=== PATIENT | male | born 1995 | race American Indian/Alaskan Native ===

== ENCOUNTER 2021-08-17 19:53 | Emergency (ER) | payer SELFPAY ==
--- NOTE | 2021-08-18 08:12 | Emergency Department Report ---
ED Lower Extremity HPI - General Chief Complaint: Extremity Problem,Nontraumatic Stated Complaint: PAIN IN FOOT Time Seen by Provider: 08/18/21 07:51 Source: patient Mode of arrival: Ambulatory Limitations: No Limitations - History of Present Illness Initial Comments: Patient is a 25-year-old male that comes to the ER with bilateral foot pain. He did not give all information on initial exam. However, it came out through the course of his stay that he has bilateral gout. He is on colchicine, allopurinol, prednisone and indomethacin. None of this was divulged at the beginning of his exam. He denies any trauma. He is neurovascularly intact. He is accompanied to the ER by his . He denies any leg pain. Denies any chest pain, shortness of breath, fever or chills. Complaint: other -: Gradual, days(s) Place: home Severity scale (0 -10): 4 Improves With: nothing Worsens With: weight bearing - Related Data Allergies Allergy/AdvReac Type Severity Reaction Status Date / Time No Known Allergies Allergy Verified 08/17/21 21:33 ED Review of Systems ROS: Stated complaint: PAIN IN FOOT Other details as noted in HPI Comment: All other systems reviewed and negative ED Past Medical Hx - Past Medical History Previous Medical History?: Yes Additional medical history: Being treated for gout, denies having had a uric acid level drawn in the past--obesity - Surgical History Past Surgical History?: No - Family History Family history: no significant - Social History Smoking Status: Never Smoker Substance Use Type: None ED Physical Exam - General Limitations: No Limitations General appearance: alert, in no apparent distress - Head Head exam: Present: atraumatic, normocephalic - Eye Eye exam: Present: normal appearance - ENT ENT exam: Present: mucous membranes moist - Neck Neck exam: Present: normal inspection - Respiratory Respiratory exam: Present: normal lung sounds bilaterally. Absent: respiratory distress - Cardiovascular Cardiovascular Exam: Present: regular rate, normal rhythm. Absent: systolic murmur, diastolic murmur, rubs, gallop - GI/Abdominal GI/Abdominal exam: Present: soft, normal bowel sounds - Rectal Rectal exam: Present: deferred - Extremities Exam Extremities exam: Present: normal inspection - Back Exam Back exam: Present: normal inspection - Neurological Exam Neurological exam: Present: alert, oriented X3 - Psychiatric Psychiatric exam: Present: normal affect, normal mood - Skin Skin exam: Present: warm, dry, intact, normal color. Absent: rash ED Course Vital Signs 08/17/21 08/18/21 21:28 09:54 Temperature 97.9 F Pulse Rate 87 88 Respiratory 20 16 Rate Blood Pressure 127/72 Blood Pressure 122/76 [Left] O2 Sat by Pulse 96 99 Oximetry ED Lower Extremity MDM - Lab Data Result diagrams: 08/18/21 08:22 08/18/21 08:22 - Medical Decision Making Vital Signs 08/17/21 21:28 Temperature 97.9 F Pulse Rate 87 Respiratory 20 Rate Blood Pressure 127/72 O2 Sat by Pulse 96 Oximetry Lab Results 08/18/21 08/18/21 08/18/21 Range/Units 08:22 08:22 Unknown WBC 4.9 (4.5-11.0) K/mm3 RBC 5.56 H (3.65-5.03) M/mm3 Hgb 14.9 (11.8-15.2) gm/dl Hct 46.1 H (35.5-45.6) % MCV 83 L (84-94) fl MCH 27 L (28-32) pg MCHC 32 (32-34) % RDW 14.0 (13.2-15.2) % Plt Count 187 (140-440) K/mm3 Sodium 140 (137-145) mmol/L Potassium 4.4 (3.6-5.0) mmol/L Chloride 101.1 (98-107) mmol/L Carbon Dioxide 27 (22-30) mmol/L Anion Gap 16 mmol/L BUN 18 (9-20) mg/dL Creatinine 0.8 (0.8-1.3) mg/dL Estimated GFR > 60 ml/min BUN/Creatinine Ratio 23 % Glucose 122 H (75-100) mg/dL Uric Acid 7.0 (3.5-7.6) mg/dL Calcium 10.0 (8.4-10.2) mg/dL Total Bilirubin 0.20 (0.1-1.2) mg/dL AST 16 (5-40) units/L ALT 18 (7-56) units/L Alkaline Phosphatase 57 (35-129) units/L Total Creatine Kinase 450 H (55-170) units/L Total Protein 7.6 (6.3-8.2) g/dL Albumin 5.0 (3.9-5) g/dL Albumin/Globulin Ratio 1.9 % Urine Color Yellow (Yellow) Urine Turbidity Clear (Clear) Urine pH 5.0 (5.0-7.0) Ur Specific [place] 1.025 (1.003-1.030) Urine Protein <15 mg/dl (Negative) mg/dL Urine Glucose (UA) Neg (Negative) mg/dL Urine Ketones 20 (Negative) mg/dL Urine Blood Neg (Negative) Urine Nitrite Neg (Negative) Urine Bilirubin Neg (Negative) Urine Urobilinogen < 2.0 (<2.0) mg/dL Ur Leukocyte Esterase Neg (Negative) Urine WBC (Auto) 1.0 (0.0-6.0) /HPF Urine RBC (Auto) < 1.0 (0.0-6.0) /HPF Urine Mucus Few /HPF Patient denies trauma. His labs were noted. Uric acid normal CK noted. Patient does work outside he does a lot of heavy lifting and he admits that he does not drink enough water. We had a long discussion about his use of colchicine, prednisone, allopurinol and indomethacin in the setting of a CK elevation. I encouraged him to drink a lot of water so that his kidney function remains normal. I have also discussed with him his elevated blood glucose. He denies having a primary care physician but we have discussed the importance of him having one doctor that he follows up with that can maintain his medical problems. We have also discussed being forthcoming with medical providers about his past medical history. Patient is very adamant about a work note and not going to work because of his foot pain. I have given him a work note for today but told him we cannot take him out of work that he will need to see primary care for this. The nurses call me back to the room for additional education I went over the above lab findings again with the patient and the family. They verbalized understanding of plan of care including diet, activity, medications, hydration and follow-up. On discharge patient is in no acute distress, he has normal vital signs. He has no fever or chills. He is taking p.o. He is ambulatory with no difficulty - Differential Diagnosis Rule out gout Critical care attestation.: If time is entered above; I have spent that time in minutes in the direct care of this critically ill patient, excluding procedure time. ED Disposition Clinical Impression: Foot cramps, Elevated CK Obesity Qualifiers: Obesity type: due to excess calories Disposition: HOME / SELF CARE / HOMELESS Is pt being admited?: No Does the pt Need Aspirin: No Condition: Stable Instructions: Muscle Cramps and Spasms, [id number] Additional Instructions: STAY WELL HYDRATED WITH WATER FOLLOW UP WITH PCP TO REPEAT CK MOTRIN OR TYLENOL FOR PAIN Referrals: PRIYANKA SAENZ MD [Staff Physician] - 3-5 Days Forms: Work/School Release Form(ED) Time of Disposition: 09:26
[2021-08-18] MEDS ORDERED: dexAMETHasone 4 MG/ML VIAL IM ONE (08:13)
[2021-08-18 08:57] LABS: Hematocrit 46.1 % (35.5-45.6); Hemoglobin 14.9 gm/dl (11.8-15.2); Mean Corpuscular HGB Conc 32 % (32-34); Mean Corpuscular Volume 83 fl (84-94); Platelet Count 187 K/mm3 (140-440); Red Blood Count 5.56 M/mm3 (3.65-5.03)
[2021-08-18 09:02] LABS: Bilirubin,Urine NEG (Negative); Blood,Urine NEG (Negative); Color,Urine Yellow (Yellow); Mucus,Urine FEW /HPF; Protein,Urine <15 mg/dL mg/dL (Negative); RBC,Urine < 1.0 /HPF (0.0-6.0); Urobilinogen,Urine < 2.0 mg/dL (<2.0)
[2021-08-18 09:15] LABS: Alanine Aminotransferase 18 units/L (7-56); BUN/Creatinine Ratio 23; Blood Urea Nitrogen 18 mg/dL (9-20); Hemolysis Index 12
[2021-08-18 09:55] VITALS: BP 122/76
== END 2021-08-18 09:55 | disposition home or self-care (01) ==
LOC: ED 19:53
DX: R25.2 Cramp and spasm (principal); R74.8 Abnormal levels of other serum enzymes; E66.9 Obesity, unspecified
CPT/HCPCS: 36415; 80053; 81001; 82550; 84550; 85027; 96372; 99283; J1100